=== PATIENT | female | born 1930 ===

== ENCOUNTER 2020-09-16 07:57 | Emergency (ER) | payer OTHER ==
[~2020-09-16] VITALS: Ht 160 cm; Wt 63.0 kg
[2020-09-16] MEDS ORDERED: VASOTEC2.5 MG (08:17)
[2020-09-16] MEDS ORDERED: FORTAMET500 MG (08:17)
[2020-09-16] MEDS ORDERED: ECOTRIN81 MG (08:18)
[2020-09-16] MEDS ORDERED: ROSUVASTATIN (08:20)
== END 2020-09-16 16:19 | disposition home or self-care (01) ==
LOC: ER 07:57
DX: R42 Dizziness and giddiness (principal); R63.0 Anorexia; R53.1 Weakness